=== PATIENT | male | born 1950 | race Caucasian/White ===

== ENCOUNTER 2017-05-15 00:06 | Emergency (ER) | payer MEDICAID ==
[~2017-05-15] VITALS: Ht 182.9 cm; Wt 94.3 kg
[~2017-05-15 00:06] MED LIST: ATOR20TA PO; BENA40TA2 PO; CARV25TA PO; CIPR-262 PO
[2017-05-15] MEDS ORDERED: ASPIRIN 81 MG TAB.CHEW ONE (00:25)
[2017-05-15] MEDS ORDERED: ASPIRIN 81 MG TAB.CHEW PO ONE (00:30)
[2017-05-15 00:44] LABS: BASOPHILS % (AUTO) 0.7 % (0.0-2.0); EOSINOPHILS # (AUTO) 0.1 /CMM (0.0-0.7); EOSINOPHILS % (AUTO) 2.2 % (0.0-6.0); HEMATOCRIT 44 % (39-51); HEMOGLOBIN 14.7 g/dL (13.5-17.5); LYMPHOCYTES # (AUTO) 2.2 /CMM (0.8-4.8); LYMPHOCYTES % (AUTO) 43.1 % (20.0-44.0); MEAN CORPUSCULAR HEMOGLOBIN 28 PG (26.0-33.0); MEAN CORPUSCULAR HGB CONC 33 g/dl (31.0-36.0); MEAN CORPUSCULAR VOLUME 85 fL (80-96); MONOCYTES # (AUTO) 0.5 /CMM (0.1-1.30); MONOCYTES % (AUTO) 9.7 % (2.0-12.0); NEUTROPHILS # (AUTO) 2.3 /CMM (1.8-8.9); NEUTROPHILS % (AUTO) 44.3 % (43.0-81.0); PLATELET COUNT (AUTO) 219 /CMM (150-450); RED BLOOD CELL COUNT(AUTO) 5.21 MIL/uL (4.5-6.0); WHITE BLOOD COUNT (AUTO) 5.2 K/uL (4.3-11.0)
[2017-05-15 00:55] LABS: CALCIUM, SERUM 9.3 mg/dL (8.5-10.1); CARBON DIOXIDE 31 mmol/L (21-32); CHLORIDE 105 mmol/L (98-107); GLUCOSE 101 mg/dL (74-106); INR 1.01 (0.87-1.13); POTASSIUM 4.1 mmol/L (3.5-5.1); PROTHROMBIN TIME 10.5 SECS (9.5-12.7); SODIUM SERUM 143 mmol/L (136-145); UREA NITROGEN, BLOOD 20 mg/dL (7-18)
[2017-05-15 01:03] LABS: TROPONIN I < 0.017 ng/mL (0.00-0.056)
[2017-05-15 02:06] VITALS: BP 155/95
== END 2017-05-16 00:27 | disposition home or self-care (01) ==
LOC: ER 00:09
DX: R00.2 Palpitations (principal); I49.1 Atrial premature depolarization
CPT/HCPCS: 36415; 71010; 80048; 84484; 85025; 85730; 93005; 99285; A4606; Z7610